=== PATIENT | female | born 1955 | race Caucasian/White ===

== ENCOUNTER 2016-03-01 08:57 | Day surgery (SDC) | payer OTHER ==
[~2016-03-01] VITALS: Ht 160 cm; Wt 80.3 kg
[~2016-03-01 08:57] MED LIST: HYDR30CR75 PR
[2016-03-01 10:07] VITALS: BP 121/77; PULSE 75; RESP 16; Ht 160 cm; Wt 80.3 kg
[2016-03-01] MEDS ORDERED: FENTAnyl 50 MCG/ML VIAL ONE (11:35)
[2016-03-01] MEDS ORDERED: MIDAZOLAM 1 MG/ML 2 ML INJ ONE ×3 (11:36)
[2016-03-01 11:47] VITALS: BP 154/72; PULSE 72; RESP 16
[2016-03-01 12:07] VITALS: BP 155/74; PULSE 74; RESP 16
--- NOTE | 2016-03-01 18:18 | GILP ---
DATE OF PROCEDURE: NAME OF PROCEDURE: Colonoscopy and biopsy. SURGEON: Khloe Palomino MD PREOPERATIVE DIAGNOSES: Rectal bleeding. POSTOPERATIVE DIAGNOSES: 1. Colonoscopy all the way to the cecum. 2. Small transverse colon polyp was removed using the biopsy forceps. 3. Internal and external hemorrhoids. INDICATION FOR THE PROCEDURE: Ms. Sukumar Fuller is a 60-year-old female patient who had rectal bleeding. She never had screening colonoscopy. The patient was scheduled for colonoscopy for [facility] evaluation. The procedure and possible complications were well explained to the patient. The patient understood and consented to the procedure. DESCRIPTION OF PROCEDURE: Under the influence of fentanyl and Versed, the colonoscope was carefully introduced in the rectum, and under direct vision, it was advanced all the way to the cecum. FINDINGS: The patient had a small transverse colon polyp, and it was removed using the biopsy force ps. She was noted to have internal and external hemorrhoids. She tolerated the procedure very well. There was no complication from the procedure. At the end of the procedure, she was awake with stable vital signs, and she was discharged home to care of her [facility]. IMPRESSION: 1. Colonoscopy all the way to the cecum. 2. Small transverse colon polyp was removed using the biopsy forceps. 3. Internal and external hemorrhoids. PLAN: 1. Anusol-HC 2.5% cream b.i.d. 2. Sitz bath twice a day. 3. If the rectal pain and bleeding continue, may consider hemorrhoidectomy. 4. Next screening colonoscopy in 10 years. Dictated By: KHLOE HALEY/BIANCA Conf#: [id number] DID#: [id number]
--- NOTE | 2016-03-01 19:09 | CONS ---
DATE OF ADMISSION: 03/01/2016 DATE OF CONSULTATION: TYPE OF CONSULTATION: Preoperative gastroenterology. Dear Dr. Baugh: I thank you very much for this kind referral. HISTORY OF PRESENT ILLNESS: Ms. Sukumar Fuller is a 60-year-old female patient who has been refe rred to me for further evaluation of rectal bleeding. The patient says she is having rectal bleedin g for the past few months. There is no past history of colon neoplasm. The patient never had scree jenise colonoscopy. Her appetite has been good, and she is not losing any weight. She does not have any upper abdominal pain, nausea or vomiting. There is no history of peptic ulcer disease. She is not taking any nonsteroidal anti-inflammatory agents. There is no history of gallstones. She does not have any fever, chills or jaundice. There is no history of liver disease. She is not a hyperte nsive or diabetic. She does not have any heart disease or lung problem. There is no history of kid casimiro disease. SOCIAL HISTORY: She is an occasional smoker. She does not abuse alcohol. FAMILY HISTORY: Negative for gastrointestinal tract neoplasm. ALLERGIES: THERE IS NO HISTORY OF SIGNIFICANT DRUG ALLERGY. MEDICATIONS: None. PHYSICAL EXAMINATION: GENERAL: She is 5 feet 2 inches tall, and she weighs 173 pounds. HEART: Normal first and second heart sounds. LUNGS: Clear. ABDOMEN: Soft without any distention. Liver and spleen are not palpable. There are no masses. Th ere is no focal tenderness. Normal bowel sounds are heard. CENTRAL NERVOUS SYSTEM: Examination does not reveal any focal neurological deficit. IMPRESSION: 1. Rectal bleeding. 2. The patient never had screening colonoscopy. 3. The patient is an occasional smoker. PLAN: 1. The patient does not want rectal examination at the present time. It is deferred per the patien t's request. 2. Colonoscopy for further evaluation. The procedure and possible complications are well explained to the patient. She understands and con sents to the procedure. I thank you once again. With warmest personal regards, Dictated By: KHLOE HALEY/NTS Conf#: [id number] DID#: [id number]
== END 2016-03-01 13:01 | disposition home or self-care (01) ==
LOC: GIL 08:57
PROVIDERS: ATTEND Internal Medicine Gastroenterology
DX: Z12.11 Encounter for screening for malignant neoplasm of colon (principal); K64.4 Residual hemorrhoidal skin tags; K64.8 Other hemorrhoids; F17.200 Nicotine dependence, unspecified, uncomplicated
CPT/HCPCS: 45380; 88305; J2250; J3010